=== PATIENT | female | born 1995 | race Caucasian/White ===

== ENCOUNTER 2021-01-09 11:57 | Emergency (ER) | payer SELFPAY ==
[2021-01-09 12:05] VITALS: BP 140/93
--- NOTE | 2021-01-09 12:14 | Emergency Department Report ---
ED Headache HPI - General Chief Complaint: Headache Stated Complaint: CHESTPAIN/HEADACHE Time Seen by Provider: 01/09/21 12:06 - History of Present Illness Initial Comments: Patient is 25 years old female with history of subdural hematoma 2 months ago per patient report. Patient stated that she had her surgery at [facility]. Patient denied any recent head injury. Patient presented to the ER complaining of headache, global started last night. Patient denied any neck pain, weakness, numbness or tingling sensation. No bowel or bladder incontinence. Patient also denied any fever or chills. No nausea or vomiting. Patient GCS is 15. Timing/Duration: 24 hours Quality: moderate Head Injury Location: global Recent Head Trauma: no recent headache/trauma, occasional headaches Associated Symptoms: denies symptoms. denies: confusion, fatigue, facial pain, fever/chills, flushing, loss of consciousness, nausea/vomiting, nasal congestion, nasal drainage, numbness in legs/feet, rash, seizures, sinus infection, stiff neck, vision changes, weakness, other Allergies/Adverse Reactions: Allergies No Known Allergies Allergy (Unverified 03/15/14 08:51) Home Medications: Ambulatory Orders Acyclovir 400 mg PO TID #30 tablet 03/15/14 HYDROcodone/APAP 10-325 [Lena 10-325 mg TAB] 1 each PO Q4-6H PRN #20 tablet 03/15/14 Sulfamethoxazole/Trimethoprim [Bactrim Ds] 1 each PO Q12H #14 tablet 03/15/14 ED Review of Systems ROS: Stated complaint: CHESTPAIN/HEADACHE Other details as noted in HPI Comment: All other systems reviewed and negative Constitutional: denies: chills, fever Respiratory: denies: cough, shortness of breath, SOB with exertion Cardiovascular: denies: chest pain Gastrointestinal: denies: abdominal pain Musculoskeletal: denies: back pain Neurological: headache. denies: weakness, numbness, paresthesias, confusion, abnormal gait ED Past Medical Hx - Past Medical History Previous Medical History?: Yes Hx Hypertension: Yes - Social History Smoking Status: Current Every Day Smoker Substance Use Type: Alcohol - Medications Home Medications: Home Medications Medication Instructions Recorded Confirmed Last Taken Type Acyclovir 400 mg PO TID #30 tablet 03/15/14 Unknown Rx HYDROcodone/APAP 10-325 [Lena 1 each PO Q4-6H PRN #20 tablet 03/15/14 Unknown Rx 10-325 mg TAB] Sulfamethoxazole/Trimethoprim 1 each PO Q12H #14 tablet 03/15/14 Unknown Rx [Bactrim Ds] ED Physical Exam - General Limitations: No Limitations General appearance: alert, in no apparent distress - Head Head exam: Present: atraumatic, normocephalic, normal inspection - Eye Eye exam: Present: normal appearance, PERRL - ENT ENT exam: Present: normal exam, normal orophraynx, mucous membranes moist, TM's normal bilaterally, normal external ear exam - Neck Neck exam: Present: normal inspection, full ROM. Absent: tenderness, meningismus - Respiratory Respiratory exam: Present: normal lung sounds bilaterally - Cardiovascular Cardiovascular Exam: Present: tachycardia - GI/Abdominal GI/Abdominal exam: Present: soft, normal bowel sounds. Absent: distended, tenderness, guarding, rebound, rigid, organomegaly, mass, bruit, pulsatile mass, hernia - Extremities Exam Extremities exam: Present: normal inspection, full ROM, normal capillary refill. Absent: tenderness - Back Exam Back exam: Present: normal inspection, full ROM. Absent: CVA tenderness (R), CVA tenderness (L) - Neurological Exam Neurological exam: Present: alert, oriented X3, CN II-XII intact, normal gait, reflexes normal. Absent: abnormal gait, motor sensory deficit - Psychiatric Psychiatric exam: Present: normal mood - Skin Skin exam: Present: warm, intact, normal color ED Course Vital Signs 01/09/21 01/09/21 01/09/21 12:00 12:04 12:08 Temperature 98.4 F Pulse Rate 110 H Respiratory 16 16 Rate Blood Pressure 135/98 140/93 [Right] O2 Sat by Pulse 99 Oximetry ED Medical Decision Making - Lab Data Result diagrams: 01/09/21 12:33 01/09/21 12:33 - Radiology Data Radiology results: report reviewed - Medical Decision Making Patient is 25 years old female with history of subdural hematoma 2 months ago per patient report. Patient stated that she had her surgery at [facility]. Patient denied any recent head injury. Patient presented to the ER complaining of headache, global started last night. Patient denied any neck pain, weakness, numbness or tingling sensation. No bowel or bladder incontinence. Patient also denied any fever or chills. No nausea or vomiting. Patient GCS is 15. Patient remained stable in the ER. Labs reviewed and is unremarkable. CT brain is negative for acute finding. Patient received Toradol 60 mg IM with improvement of her headache. Patient advised to follow-up with her primary care physician in the next 2 to 3 days and to return to the ER if she develop any new symptoms. Critical care attestation.: If time is entered above; I have spent that time in minutes in the direct care of this critically ill patient, excluding procedure time. ED Disposition Clinical Impression: Acute headache, History of subdural hematoma Disposition: DC-01 TO HOME OR SELFCARE Is pt being admited?: No Condition: Stable Instructions: General Headache Without Cause Referrals: PRIMARY CARE, [Primary Care Provider] - 3-5 Days
[2021-01-09 12:55] LABS: Basophils % (Auto) 0.1 % (0.0-1.8); Eosinophils # (Auto) 0.1 K/mm3 (0.0-0.4); Eosinophils % (Auto) 0.6 % (0.0-4.3); Hematocrit 39.1 % (30.3-42.9); Hemoglobin 13.3 gm/dl (10.1-14.3); Lymphocytes # (Auto) 1.3 K/mm3 (1.2-5.4); Lymphocytes % (Auto) 12.5 % (13.4-35.0); Mean Corpuscular HGB Conc 34 % (30-34); Mean Corpuscular Volume 94 fl (79-97); Monocytes # (Auto) 0.8 K/mm3 (0.0-0.8); Monocytes % (Auto) 7.4 % (0.0-7.3); Platelet Count 258 K/mm3 (140-440); Red Blood Count 4.15 M/mm3 (3.65-5.03); Red Cell Distribution Width 13.3 % (13.2-15.2)
[2021-01-09 13:11] LABS: Blood Urea Nitrogen 6 mg/dL (7-17); Calcium 9.7 mg/dL (8.4-10.2); Hemolysis Index 3
[2021-01-09 13:12] LABS: BUN/Creatinine Ratio 9
--- NOTE | 2021-01-09 14:32 | Cat Scan Report ---
CT BRAIN: 01/09/2021 INDICATION / CLINICAL INFORMATION: HEADACHE, H/O SUBDURAL HEMATOMA. COMPARISON: None available. FINDINGS: BRAIN/INTRACRANIAL STRUCTURES: Unenhanced CT images of the brain were obtained. No previous studies a re available here for comparison. Patient is had a prior right parietal craniotomy. There is no evidence of acute abnormality. Ventricles and sulci are normal in size and shape. There is no evidence of hemorrhage or mass. There are no abnormal extra-axial fluid collections. EXTRACRANIAL STRUCTURES: Unremarkable. IMPRESSION: No acute abnormality. Status post right parietal craniotomy. All CT scans at this location are performed using dose reduction to ALARA by means of automated expos ure control. Signer Name: Donald Espinal MD Signed: 01/09/2021 2:27 PM Workstation Name: [id number]
[2021-01-09] MEDS ORDERED: KETOROLAC 60 MG/2 ML INJ IM ONE (14:50)
--- NOTE | 2021-01-10 19:23 | Electrocardiograph Report ---
[facility] Test Date: 2021-01-09 Test Time: 14:05:07 Pat Name: WALE MAXWLEL Department: Room: Gender: F Advisory Software Engineer: OLVIN : 1995 Requested By: CECILIA ROSE Order Number: [id number] Reading MD: Amy Caro Measurements Intervals [place] Rate: 81 P: 37 MN: 138 QRS: 73 QRSD: 85 T: 42 QT: 378 QTc: 439 Interpretive Statements Sinus rhythm No previous ECG available for comparison Electronically Signed On 01-10-2021 19:23:09 EDT by Amy Caro
== END 2021-01-09 15:20 | disposition home or self-care (01) ==
LOC: ED 11:57
DX: R51.9 Headache, unspecified (principal); I10 Essential (primary) hypertension; F17.200 Nicotine dependence, unspecified, uncomplicated; Z72.89 Other problems related to lifestyle; Z87.820 Personal history of traumatic brain injury
CPT/HCPCS: 36415; 70450; 80048; 84703; 85025; 93005; 96372; 99284; J1885